=== PATIENT | female | born 1975 | race Caucasian/White ===

== ENCOUNTER 2023-04-20 22:05 | Inpatient (IN) | payer BC ==
[2023-04-20 22:31] LABS: BASOPHILS ABSOLUTE AUTO 0.02 K/uL (0.00-0.20); BASOPHILS PERCENT AUTO 0.1 % (0.0-2.0); EOSINOPHILS ABSOLUTE AUTO 0.05 K/uL (0.00-0.50); EOSINOPHILS PERCENT AUTO 0.3 % (0.0-5.0); HEMATOCRIT 29.2 % (34.0-46.0); HEMOGLOBIN 9.1 g/dL (11.7-15.5); LYMPHOCYTES ABSOLUTE AUTO 0.84 K/uL (0.50-3.50); LYMPHOCYTES PERCENT AUTO 5.4 % (10.0-50.0); MEAN CORPUSCULAR HEMOGLOBIN 27.7 pg (28.2-33.3); MEAN CORPUSCULAR HGB CONC 31.2 g/dL (31.7-36.0); MEAN CORPUSCULAR VOLUME 88.8 fL (84.0-98.0); MONOCYTES ABSOLUTE AUTO 0.34 K/uL (0.00-1.00); MONOCYTES PERCENT AUTO 2.2 % (2.0-14.0); PLATELET COUNT,PLT 362 K/uL (150-350); RED BLOOD CELL COUNT 3.29 M/uL (3.77-5.09); RED CELL DISTRIBUTION WIDTH 13.7 % (11.2-14.1); WHITE BLOOD CELL COUNT,WBC 15.5 K/uL (4.0-10.2)
[2023-04-20 22:46] LABS: ALANINE AMINOTRANSFERASE,ALT 21 U/L (12-78); ALKALINE PHOSPHATASE 55 IU/L (46-116); ASPARTATE AMNIOTRANSFERASE,AST 18 U/L (15-37); BILIRUBIN TOTAL 0.3 mg/dL (0.2-1.0); BLOOD UREA NITROGEN,BUN 12 mg/dL (7-18); CALCIUM 8.8 mg/dL (8.5-10.1); CARBON DIOXIDE,CO2 23.8 mmol/L (21.0-32.0); CHLORIDE,CL 102 mmol/L (98-107); CREATININE 1.06 mg/dL (0.51-1.17); GLUCOSE RANDOM 133 mg/dL (70-99); MAGNESIUM 1.7 mg/dL (1.8-2.4); POTASSIUM,K 3.1 mmol/L (3.5-5.1); PROTEIN TOTAL,TP 7.1 g/dL (6.4-8.2); SODIUM,NA 138 mmol/L (136-145)
[2023-04-20] MEDS ORDERED: Sodium Chloride 0.9% 10 ML Syringe FLUSH PRN (22:49)
[2023-04-20 23:07] LABS: CORONAVIRUS COVID-19 NAA NEGATIVE (NEGATIVE); INFLUENZA A NAA NEGATIVE (NEGATIVE); INFLUENZA B NAA NEGATIVE (NEGATIVE); RESPIRATORY SYNCYTIAL VIR NAA NEGATIVE (NEGATIVE)
[2023-04-20 23:21] LABS: ANION GAP 15.3 meq/L (7-15); ESTIMATED GFR 65 mL/min (>=60)
[2023-04-20] MEDS: Iopamidol 755 Mg/ML 100 ML Bottle IVPUSH ONE (23:45)
[2023-04-20] MEDS: Potassium Bicarbonate/Cit Ac 20 MEQ Effervescent Tab PO ONE (23:48)
[2023-04-21] MEDS: Sodium Chloride 0.9% 1,000 ML IV SCH (00:08)
[2023-04-21] MEDS: Albuterol/Ipratropium 3.0-0.5 MG/3 ML Neb Soln NEB ONE ×2 (00:20)
[2023-04-21] MEDS: predniSONE 20 MG Tab PO ONE (00:21)
[2023-04-21] MEDS: methylPREDNISolone Sodium Succinate 125 MG/2 ML SDV IVPUSH ONE (00:21)
[2023-04-21] MEDS: Albuterol 0.083% 2.5 MG/3 ML Neb Soln NEB ONE (00:21)
[2023-04-21 00:26] LABS: O2 DELIVERY DEVICE NASAL CANNULA; PCO2 VENOUS 31 mmHG (41-51); PH,VENOUS 7.44 (7.31-7.41)
[2023-04-21 00:27] LABS: BASE EXCESS VENOUS -3 mmol/L ((-2)-3); BICARBONATE,VENOUS 21 mmol/L (23-28); O2 SATURATION VENOUS 72 %; PO2 VENOUS 36 mmHG
[2023-04-21] MEDS ORDERED: Ondansetron 4 MG/2 ML SDV IVPUSH PRN (00:27)
[2023-04-21] MEDS ORDERED: Albuterol 0.083% 2.5 MG/3 ML Neb Soln NEB PRN (00:27)
[2023-04-21] MEDS ORDERED: Acetaminophen 325 MG Tab PO PRN (00:27)
[2023-04-21] MEDS: Ketorolac 15 MG/ML SDV IVPUSH ONE (00:55)
[2023-04-21] MEDS: Benzonatate 100 MG Cap PO SCH (00:56)
[2023-04-21] MEDS: cefTRIAXone 2 GM in Sodium Chloride 0.9% 100 ML IV SCH ×2 (00:56→21:13)
[2023-04-21] MEDS: Albuterol/Ipratropium 3.0-0.5 MG/3 ML Neb Soln NEB SCH (00:56)
[2023-04-21] MEDS: Azithromycin 500 MG in Sodium Chloride 0.9% 250 ML IV SCH ×2 (01:43→20:05)
[2023-04-21] MEDS: Codeine/Promethazine 10-6.25 MG/5 ML Syrup 5 ML UD Cup PO PRN (03:37)
[2023-04-21] MEDS: guaiFENesin 600 MG Tab.ER PO SCH (08:05)
[2023-04-21] MEDS: Enoxaparin 40 MG/0.4 ML Syringe SUBCUT SCH ×2 (08:17→22:53)
[2023-04-21 14:07] LABS: BASOPHILS ABSOLUTE AUTO 0.01 K/uL (0.00-0.20); BASOPHILS PERCENT AUTO 0.1 % (0.0-2.0); HEMATOCRIT 26.8 % (34.0-46.0); HEMOGLOBIN 8.2 g/dL (11.7-15.5); LYMPHOCYTES ABSOLUTE AUTO 0.31 K/uL (0.50-3.50); LYMPHOCYTES PERCENT AUTO 2.6 % (10.0-50.0); MEAN CORPUSCULAR HEMOGLOBIN 27.4 pg (28.2-33.3); MEAN CORPUSCULAR HGB CONC 30.6 g/dL (31.7-36.0); MEAN CORPUSCULAR VOLUME 89.6 fL (84.0-98.0); MONOCYTES PERCENT AUTO 3.4 % (2.0-14.0); NEUTROPHILS ABSOLUTE AUTO 11.13 K/uL (1.40-7.00); NEUTROPHILS PERCENT AUTO 93.9 % (45.0-80.0); PLATELET COUNT,PLT 319 K/uL (150-350); RED BLOOD CELL COUNT 2.99 M/uL (3.77-5.09); RED CELL DISTRIBUTION WIDTH 13.6 % (11.2-14.1); WHITE BLOOD CELL COUNT,WBC 11.9 K/uL (4.0-10.2)
[2023-04-21 14:18] LABS: CALCIUM 8.9 mg/dL (8.5-10.1); CARBON DIOXIDE,CO2 26.3 mmol/L (21.0-32.0); CREATININE 0.96 mg/dL (0.51-1.17); EST CRCL DRUG DOSING (CG) 70.45 mL/min; MAGNESIUM 2.2 mg/dL (1.8-2.4); POTASSIUM,K 4.4 mmol/L (3.5-5.1)
[2023-04-21 14:19] LABS: ANION GAP 13.1 meq/L (7-15)
[2023-04-21] MEDS ORDERED: busPIRone 15 MG Tab PO SCH (18:00)
[2023-04-21] MEDS: NORETHINDRONE 5 MG PO SCH (20:04)
[2023-04-21] MEDS: methylPREDNISolone Sodium Succinate 125 MG/2 ML SDV IVPUSH SCH (20:04)
[2023-04-21] MEDS: FLUoxetine 20 MG Cap PO SCH (20:04)
[2023-04-21] MEDS: Sodium Chloride 0.9% 10 ML Syringe FLUSH PRN (20:05)
[2023-04-21] MEDS: busPIRone 15 MG Tab PO SCH (20:05)
[2023-04-22] MEDS: Morphine 2 MG/ML SYRINGE ONE (00:19)
[2023-04-22] MEDS: Morphine 4 MG/ML Syringe ONE (00:24)
[2023-04-22] MEDS ORDERED: FLUoxetine 20 MG Cap PO SCH (08:00)
== END 2023-04-22 01:07 | DRG 139 ==
LOC: LL.ED 22:05 → LL.MS 23:58
PROVIDERS: ADMIT Emergency Medicine; ATTEND Emergency Medicine
DX: J18.9 Pneumonia, unspecified organism (principal); J96.01 Acute respiratory failure with hypoxia; N93.9 Abnormal uterine and vaginal bleeding, unspecified; D25.9 Leiomyoma of uterus, unspecified; J45.909 Unspecified asthma, uncomplicated; E87.6 Hypokalemia; F41.9 Anxiety disorder, unspecified; F32.A Depression, unspecified; Z90.89 Acquired absence of other organs; Z98.890 Other specified postprocedural states; Z79.899 Other long term (current) drug therapy
CPT/HCPCS: 0241U; 36415; 71046; 71275; 80048; 80053; 82803; 83605; 83735; 85025; 85379; 86140; 87040; 87641; 87899; 94640; 94761; 96365; 99285-25; A9270-GY; J0456; J0696; J1650; J1885; J2270; J2930; J3475; J3490; J7030; J7050; J7620-GY; Q9967

== ENCOUNTER 2023-11-06 19:57 | Emergency (ER) | payer BC ==
[2023-11-06] MEDS: Lidocaine 2% with EPINEPHrine 1:100,000 20 ML MDV INJECT ONE (20:14)
[2023-11-06] MEDS: Bacitracin/Neomycin/Polymyxin B Oint 0.9 GM U/D Packet TOP ONE (20:29)
== END 2023-11-06 20:40 | disposition home or self-care (01) ==
LOC: LL.ED 19:57
DX: L98.9 Disorder of the skin and subcutaneous tissue, unspecified (principal); J45.909 Unspecified asthma, uncomplicated; Z90.89 Acquired absence of other organs; Z79.899 Other long term (current) drug therapy
CPT/HCPCS: 99282; 99283-25; J3490

== ENCOUNTER 2024-03-23 18:37 | Emergency (ER) | payer BC ==
[2024-03-23] MEDS: Take Home: Benzonatate 100 MG, 6 Cap Pack PO ONE (20:18)
[2024-03-23] MEDS: Take Home: predniSONE 20 MG, 4 Tab Pack PO ONE (20:18)
== END 2024-03-23 20:19 | disposition home or self-care (01) ==
LOC: LL.ED 18:37
DX: R05.3 Chronic cough (principal); R09.82 Postnasal drip; Z79.899 Other long term (current) drug therapy
CPT/HCPCS: 71046; 99283; A9270-GY